=== PATIENT | female | born 1985 | race Caucasian/White ===

== ENCOUNTER 2017-07-31 11:50 | Emergency (ER) | payer BC, OTHER ==
[2017-07-31 11:55] VITALS: BMI 24.7
[2017-07-31] MEDS ORDERED: ONDANSETRON *ODT* 4 MG TABLET SL ONE (12:44)
[2017-07-31] MEDS ORDERED: ONDANSETRON *ODT* 4 MG TABLET ONE (12:45)
--- NOTE | 2017-07-31 12:50 | PDOC ---
History of Present Illness - General Chief Complaint: Headache Stated Complaint: HEADACHE Time Seen by Provider: 07/31/17 12:43 History Source: Patient Exam Limitations: No Limitations - History of Present Illness Initial Comments: 07/31/17 12:52 07/31/17 14:11 My Chief Complaint: severe headche, nausea, right sided neck pain History of present illness: Patient is a 32-year-old female with no significant medical history here today complaining of worsening headache "worse headache ever"since yesterday and right-sided neck pain since today. Patient reports that yesterday she quickly turned her head to get hair out of her eyes towards the right and thought she heard a click from her neck.Patient reports that she felt slight tenderness to her bilateral temporal area and frontal area around noon yesterday and then within 2-3 hours patient reports that the headache was severe at 10 out of 10. Pt. did not have any neck pain. Patient took ibuprofen 800 mg followed by Excedrin due to no relief from the ibuprofen. Patient again repeated taking ibuprofen and Excedrin at 12:00 then fell asleep. Patient reports that at 4 AM she woke from sleep due to severe headache and again took ibuprofen and Excedrin. Patient last took Excedrin at 9:30 AM. Patient reports having slight nausea since last night. Patient reports that when she initially turned her head quickly she saw stars. Patient denies any change in her vision presently, dizziness or vomiting. Pt. reports that pain is worse with turning of her head or when getting up from a seated position. Patient describes the pain as throbbing and extremely intense at 10 out of a 10. Patient denies having decreased range of motion of her neck. what7 17:23 Timing/Duration: reports: waxing and waning Severity: Yes: severe Associated Symptoms: reports: nausea/vomiting (nausea, severe headache temporal b/l frontal area), other (saw stars when this first occured yesterday for a few seconds followed by mild headache b/l temporal/ frontal within 2-3 hours headache became severe) Past History - Past Medical History Allergies/Adverse Reactions: Allergies Allergy/AdvReac Type Severity Reaction Status Date / Time No Known Allergies Allergy Verified 07/31/17 11:55 Home Medications: Ambulatory Orders Ibuprofen [Motrin] 600 mg PO TID #30 tablet 08/01/17 Methocarbamol [Robaxin -] 500 mg PO TID #30 tablet 08/01/17 Ondansetron [Zofran *Odt*] 4 mg SL TID #30 od.tablet 08/01/17 Oxycodone HCl/Acetaminophen [Percocet 5-325 mg Tablet] 1 - 2 tab PO Q6H #20 tablet MDD 4 08/01/17 COPD: No Other medical history: denies - Suicide/Smoking/Psychosocial Hx Smoking History: Never smoked Information on smoking cessation initiated: No Hx Alcohol Use: No Drug/Substance Use Hx: No Substance Use Type: None Review of Systems - Review of Systems Able to Perform ROS?: Yes Constitutional: No: Symptoms Reported HEENTM: No: Symptoms Reported Respiratory: No: Symptoms reported Cardiac (ROS): No: Symptoms Reported ABD/GI: Yes: Nausea : No: Symptoms Reported Musculoskeletal: No: Symptoms Reported Integumentary: No: Symptoms Reported Neurological: Yes: Headache (b/l parietal/ frontal since yesterday that worsened worse headache ever, woke her from sleep) *Physical Exam - Vital Signs Last Vital Signs Temp Pulse Resp BP Pulse Ox 99.4 F 105 H 19 118/74 100 07/31/17 11:53 07/31/17 11:53 07/31/17 11:53 07/31/17 11:53 07/31/17 11:53 - Physical Exam General Appearance: Yes: Appropriately Dressed HEENT: positive: EOMI, TOBY, Normal ENT Inspection Neck: positive: Tender lateral (right). negative: Decreased range of motion, Lymphadenopathy (R), Lymphadenopathy (L), Rigidity, Tender midline Respiratory/Chest: positive: Lungs Clear, Normal Breath Sounds. negative: Chest Tender, Respiratory Distress Cardiovascular: positive: Regular Rhythm, Regular Rate, S1, S2 Integumentary: positive: Normal Color Neurologic: positive: triage nurse II-XII NML intact, Fully Oriented, Alert, Normal Response, Motor Strength 5/5 (upper b/l ), Respond to painful stimul, Responsive , Finger to Nose. negative: Numbness, Sensory Deficit (b/l upper extremities) ED Treatment Course - LABORATORY CBC & Chemistry Diagram: 07/31/17 14:55 07/31/17 14:55 Medical Decision Making - Medical Decision Making 07/31/17 13:05 Patient is a 32-year-old female with no significant medical history here today complaining of worsening headache "worse headache ever"since yesterday and right -sided neck pain since today. Patient reports that yesterday she quickly turned her head to get hair out of her eyes towards the right and thought she heard a click from her neck.Patient reports that she felt slight tenderness to her bilateral temporal area and frontal area around noon yesterday and then within 2 -3 hours patient reports that the headache was severe at 10 out of 10. Pt. did not have any neck pain. Patient took ibuprofen 800 mg followed by Excedrin due to no relief from the ibuprofen. Patient again repeated taking ibuprofen and Excedrin at 12:00 then fell asleep. Patient reports that at 4 AM she woke from sleep due to severe headache and again took ibuprofen and Excedrin. Patient last took Excedrin at 9:30 AM. Patient reports having slight nausea since last night. Patient reports that when she initially turned her head quickly she saw stars. Patient denies any change in her vision presently, dizziness or vomiting. Pt. reports that pain is worse with turning of her head or when getting up from a seated position. Patient describes the pain as throbbing and extremely intense at 10 out of a 10. Patient denies having decreased range of motion of her neck. Pt. does not have any neck rigidity. Due to intensity of headache differential to include AVM, intracranial bleed subaracnoid Headache intractable nausea PLAN: IV insert cbc with Diff bmp NS 0.9% 1000 ml bolus ofirmev 1000 mg IV given with some relieft of pain for short time spoke to Dr. Schmidt in regards to type of CT needed to rule out AVM, subacranoid bleed he recommended head ct with and w/o contrast urine hcg negative zofran 4 mg sl now Iv insert 07/31/17 16:10 Laboratory Tests 07/31/17 07/31/17 07/31/17 12:40 14:55 14:55 WBC 4.6 RBC 3.68 Hgb 9.6 L D Hct 29.8 L MCV 81.1 MCH 26.2 MCHC 32.3 RDW 15.7 H Plt Count 217 MPV 8.8 Neutrophils % 66.8 Lymphocytes % 22.0 D Monocytes % 10.3 H Eosinophils % 0.3 Basophils % 0.6 Sodium 138 Potassium 3.6 Chloride 107 Carbon Dioxide 25 Anion Gap 6 L BUN 9 D Creatinine 0.8 Random Glucose 82 D Calcium 8.2 L Urine HCG, Qual Negative 07/31/17 17:31 Ct of head with/without contrast per Dr. Danielson no intracranial bleeding noted he recommends MRA brain w/o contrast CT of cervical spine without contrast spinal canal appears unremarkable. no gross fracture or subluxation is see. MRI would be more sensitive,clinical correlation needed. 6 mm hyoddense nodule in left thyroid lobe for whick further characterization of its consistency with thyroid us is needed per Dr. STEVEN Pt. continues to have severe headache, pt. has fine hand tremors b/l percocet 5mg/325 mg given INTERACTIVE ACCOUNT MANAGER checked for writter due to writter not being able to log on by Tanika Whitehead NP nothing reported in INTERACTIVE ACCOUNT MANAGER pt. is stable enoughto be transferred to main emergency room, charge nurse Nisha LAWRENCE aware will speck with attending 08/02/17 19:25 08/02/17 19:27 *DC/Admit/Observation/Transfer Diagnosis at time of Disposition: Cervical paraspinal muscle spasm Headache Qualifiers: Headache type: unspecified Headache chronicity pattern: acute headache Intractability: not intractable Qualified Code(s): R51 - Headache - Discharge Dispostion Disposition: HOME Condition at time of disposition: Stable - Prescriptions Prescriptions: Ibuprofen [Motrin] 600 mg PO TID #30 tablet Methocarbamol [Robaxin -] 500 mg PO TID #30 tablet Ondansetron [Zofran *Odt*] 4 mg SL TID #30 od.tablet Oxycodone HCl/Acetaminophen [Percocet 5-325 mg Tablet] 1 - 2 tab PO Q6H #20 tablet MDD 4 - Referrals Referrals: Jonny Miranda MD [Staff Physician] - - Patient Instructions Printed Discharge Instructions: DI for Torticollis, DI for Headache Additional Instructions: Please follow up with your doctor or the doctor referred to you here in the ED. TAke medication as directed. Return if any problems - Post Discharge Activity Forms/Work/School Notes: Back to Work
[2017-07-31] MEDS ORDERED: ACETAMINOPHEN 1000 MG/100 ML VIAL (NON FORMULARY) IVPB ONE (13:06)
[2017-07-31] MEDS ORDERED: SODIUM CHLORIDE 1,000 ML IV STA (13:08)
[2017-07-31] MEDS ORDERED: ACETAMINOPHEN INJECTION 100 ML IVPB ONE (13:15)
[2017-07-31 15:03] LABS: BASOPHIL 0.6 % (0-2.0); EOSINOPHIL 0.3 % (0-4.5); MCH 26.2 pg (25.7-33.7); MCHC 32.3 g/dl (32.0-36.0); MEAN CELL VOLUME 81.1 fl (80-96); MEAN PLT VOLUME 8.8 fl (7.5-11.1); NEUTROPHILS 66.8 % (42.8-82.8); PLATELET COUNT 217 K/MM3 (134-434); RDW 15.7 % (11.6-15.6); WHITE BLOOD COUNT 4.6 K/mm3 (4.0-10.0)
[2017-07-31 15:25] LABS: ANION GAP 6 (8-16); CALCIUM 8.2 mg/dL (8.5-10.1); CO2 25 mmol/L (21-32); CREATININE 0.8 mg/dL (0.55-1.02); GLUCOSE,RANDOM 82 mg/dL (74-106)
[2017-08-01] MEDS ORDERED: ONDANSETRON 4 MG/2 ML VIAL IVPUSH STA (00:31)
[2017-08-01] MEDS ORDERED: METHOCARBAMOL 500 MG TABLET PO ONE (00:31)
[2017-08-01] MEDS ORDERED: morphine CARPU-JECT 2 MG/1 ML DISP.SYRIN IVPUSH ONE (00:31)
[2017-08-01] MEDS ORDERED: METHOCARBAMOL 500 MG TABLET ONE (00:55)
[2017-08-01] MEDS ORDERED: morphine CARPU-JECT 8 MG/1 ML DISP.SYRIN ONE (00:55)
[2017-08-01] MEDS ORDERED: ONDANSETRON 4 MG/2 ML VIAL ONE (00:55)
--- NOTE | 2017-08-01 02:54 | PDOC ---
*Physical Exam - Vital Signs Last Vital Signs Temp Pulse Resp BP Pulse Ox 99.4 F 105 H 19 118/74 100 07/31/17 11:53 07/31/17 11:53 07/31/17 11:53 07/31/17 11:53 07/31/17 11:53 ED Treatment Course - LABORATORY CBC & Chemistry Diagram: 07/31/17 14:55 07/31/17 14:55 - ADDITIONAL ORDERS Additional order review: Laboratory Results 07/31/17 14:55 Sodium 138 Potassium 3.6 Chloride 107 Carbon Dioxide 25 Anion Gap 6 L BUN 9 D Creatinine 0.8 Random Glucose 82 D Calcium 8.2 L 07/31/17 14:55 RBC 3.68 MCV 81.1 MCHC 32.3 RDW 15.7 H MPV 8.8 Neutrophils % 66.8 Lymphocytes % 22.0 D Monocytes % 10.3 H Eosinophils % 0.3 Basophils % 0.6 - Medications Given in the ED: ED Medications Discontinued Medications Generic Name Dose Route Start Last Admin Trade Name Indy PRN Reason Stop Dose Admin Acetaminophen 1,000 mg 07/31/17 13:06 07/31/17 14:05 Ofirmev Injection - IVPB 07/31/17 13:07 1,000 mg ONCE ONE Administration Sodium Chloride 1,000 mls @ 1,000 mls/hr 07/31/17 13:08 07/31/17 14:04 Normal Saline - IV 07/31/17 14:07 1,000 mls/hr ASDIR STA Administration Methocarbamol 500 mg 08/01/17 00:31 08/01/17 01:03 Robaxin - PO 08/01/17 00:32 500 mg ONCE ONE Administration Morphine Sulfate 6 mg 08/01/17 00:31 08/01/17 01:03 Morphine Injection - IVPUSH 08/01/17 00:32 6 mg ONCE ONE Administration Ondansetron HCl 4 mg 07/31/17 12:44 07/31/17 12:51 Zofran Odt - SL 07/31/17 12:45 4 mg ONCE ONE Administration Ondansetron HCl 4 mg 08/01/17 00:31 08/01/17 01:03 Zofran Injection IVPUSH 08/01/17 00:32 4 mg ONCE STA Administration Oxycodone/Acetaminophen 1 combo 07/31/17 17:07 07/31/17 17:10 Percocet 5/325 - PO 07/31/17 17:08 1 combo ONCE ONE Administration Medical Decision Making - Medical Decision Making 08/01/17 02:54 all studies were negative for any pathology. Pt to be discharged and follow up with her pcp or Neurosurg as needed *DC/Admit/Observation/Transfer Diagnosis at time of Disposition: Cervical paraspinal muscle spasm Headache Qualifiers: Headache type: unspecified Headache chronicity pattern: acute headache Intractability: not intractable Qualified Code(s): R51 - Headache - Discharge Dispostion Disposition: HOME Condition at time of disposition: Stable Admit: No - Referrals Referrals: Jonny Miranda MD [Staff Physician] - - Patient Instructions Printed Discharge Instructions: DI for Headache, DI for Torticollis Additional Instructions: Please follow up with your doctor or the doctor referred to you here in the ED. TAke medication as directed. Return if any problems - Post Discharge Activity Forms/Work/School Notes: Back to Work
[2017-08-01 03:34] VITALS: BP 118/58; PULSE 97; TEMP 99.3
[2017-08-01] MEDS ORDERED: ONDANSETRON *ODT* 4 MG TABLET SL ONE (03:38)
[2017-08-01] MEDS ORDERED: ONDANSETRON *ODT* 4 MG TABLET ONE (03:39)
== END 2017-08-01 03:45 | disposition home or self-care (01) ==
LOC: JERFT 11:50 → JER 11:50
PROC: 3E0337Z Introduction of Electrolytic and Water Balance Substance into Peripheral Vein, Percutaneous Approach (ICD-10-PCS; principal; 2017-07-31)
PROC: 3E033NZ Introduction of Analgesics, Hypnotics, Sedatives into Peripheral Vein, Percutaneous Approach (ICD-10-PCS; 2017-07-31)
PROC: 3E033NZ Introduction of Analgesics, Hypnotics, Sedatives into Peripheral Vein, Percutaneous Approach (ICD-10-PCS; 2017-07-31)
PROC: 3E033GC Introduction of Other Therapeutic Substance into Peripheral Vein, Percutaneous Approach (ICD-10-PCS; 2017-07-31)
DX: M62.838 Other muscle spasm (principal); M54.2 Cervicalgia
CPT/HCPCS: 36415; 70470-TC; 70544-TC; 72125-TC; 80048; 84703; 85025; 99282-25

== ENCOUNTER 2022-06-05 18:44 | Emergency (ER) | payer BC ==
[2022-06-05 19:10] VITALS: TEMP 98.2; BMI 29.7
[2022-06-05] MEDS ORDERED: SODIUM CHLORIDE 0.9% 500 ML INFUS.BAG IV ONE (19:37)
[2022-06-05] MEDS ORDERED: ACETAMINOPHEN INJECTION 100 ML IVPB ONE (19:39)
[2022-06-05] MEDS ORDERED: ACETAMINOPHEN 1000 MG/100 ML BAG IVPB ONE (19:39)
[2022-06-05 19:50] LABS: BASO % 0.5 % (0-2.0); EOS % 0.5 % (0-4.5); HEMATOCRIT 29.1 % (32.4-45.2); HEMOGLOBIN 9.2 GM/dL (10.7-15.3); LYMPH % 6.9 % (8-40); MCH 26.4 pg (25.7-33.7); MCHC 31.7 g/dl (32.0-36.0); MEAN CELL VOLUME 83.2 fl (80-96); MEAN PLT VOLUME 8.7 fl (7.5-11.1); MONO % 5.5 % (3.8-10.2); NEUT % 86.6 % (42.8-82.8); PLATELET COUNT 311 10^3/uL (134-434); RBC 3.49 M/mm3 (3.60-5.2); RDW 17.1 % (11.6-15.6); WHITE BLOOD COUNT 16.7 K/mm3 (4.0-10.0)
[2022-06-05 20:05] LABS: INR 1.03 (0.83-1.09); PROTHROMBIN TIME (PATIENT) 11.9 SEC (9.7-13.0)
[2022-06-05 20:12] LABS: CALCIUM 8.7 mg/dL (8.5-10.1)
[2022-06-05 20:13] LABS: ALBUMIN 3.2 g/dl (3.4-5.0); BLOOD UREA NITROGEN 23.5 mg/dL (7-18); MAGNESIUM 1.6 mg/dL (1.8-2.4)
[2022-06-05 20:16] LABS: CREATININE 0.9 mg/dL (0.55-1.3)
[2022-06-05 20:18] LABS: BILIRUBIN,TOTAL 0.4 mg/dL (0.2-1); TOT PROT 7.3 g/dl (6.4-8.2)
[2022-06-05] MEDS ORDERED: IBUPROFEN 400 MG TABLET (FP) PO ONE ×2 (22:07→22:10)
[2022-06-05 22:17] VITALS: BP 132/79; PULSE 114; RESP 16
== END 2022-06-05 23:02 | disposition home or self-care (01) ==
LOC: JER 18:44
PROC: 3E0333Z Introduction of Anti-inflammatory into Peripheral Vein, Percutaneous Approach (ICD-10-PCS; principal; 2022-06-05)
DX: O03.9 Complete or unspecified spontaneous abortion without complication (principal); D64.9 Anemia, unspecified
CPT/HCPCS: 36415; 76817-TC; 80053; 83735; 84702; 85025; 85610; 85730; 86850; 86900; 86901; 93005; 93010; 99285-25; C9803-CS; U0003; U0005